=== PATIENT | male | born 1980 ===

== ENCOUNTER 2022-10-25 11:06 | Inpatient (IN) | payer OTHER ==
[~2022-10-25] VITALS: Ht 182.9 cm; Wt 120.2 kg
== END 2022-11-05 13:58 | disposition home or self-care (01) | DRG 419 ==
LOC: O/R 11-04 07:17 → SURG 11-04 07:17
PROVIDERS: ADMIT Surgery; ATTEND Surgery
PROC: BF13YZZ Fluoroscopy of Gallbladder and Bile Ducts using Other Contrast (ICD-10-PCS; 2022-11-04)
PROC: 0FT44ZZ Resection of Gallbladder, Percutaneous Endoscopic Approach (ICD-10-PCS; principal; 2022-11-04 15:30)
DX: K80.10 Calculus of gallbladder with chronic cholecystitis without obstruction (principal); Z20.822 Contact with and (suspected) exposure to COVID-19